=== PATIENT | male | born 1945 | race Caucasian/White ===

== ENCOUNTER 2023-03-23 16:36 | Emergency (ER) | payer MEDICARE, BC, SELFPAY ==
--- NOTE | ~2023-03-23 | XR_ITS ---
EXAMINATION: XR finger 2nd LT min 2V DATE: 03/23/2023 17:06 INDICATION: Chain saw injury to the left second digit TECHNIQUE: Dorsal palmar, lateral and 2 oblique views of the left second digit were obtained COMPARISON: None FINDINGS: Soft tissue swelling and bandaging material about the left second digit. Alignment is normal. There i s a tiny calcific density immediately adjacent to a shallow defect along the surface of the cortex at the dorsal neck of the second proximal phalanx consistent with a likely chain saw injury to the bone . No evident completed fracture extending through the full-thickness of the cortex. No other radiopaq ue foreign bodies. 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 IMPRESSION: 1. Focal small chainsaw injury (open/compound fracture) to the bone at the dorsal neck of the second proximal phalanx with and tiny minimally displaced bone fragment adjacent to the shallow defect along the cortical surface. No radiopaque foreign bodies. Reviewed, dictated and finalized at location A. IMPRESSION: 1. Focal small chainsaw injury (open/compound fracture) to the bone at the dors al neck of the second proximal phalanx with and tiny minimally displaced bone f ragment adjacent to the shallow defect along the cortical surface. No radiopaqu e foreign bodies.
[2023-03-23 16:43] VITALS: BP 141/57; PULSE 85; RESP 18; TEMP 36.6; O2SAT 98
[2023-03-23] MEDS: TETANUS,DIPHTHERIA,AC PERTUSSIS ADULT (0.5 ML) BOOSTRIX IM (16:54)
--- NOTE | 2023-03-23 17:24 | ED.WOUNDLAC ---
HPI - Wound/Laceration General Chief Complaint: Wound/Laceration Stated Complaint: hand vs chainsaw Time Seen by Provider: 03/23/23 16:53 History of Present Illness HPI narrative: Patient is a 77-year-old male presenting with a laceration. Patient was using a chainsaw when he accidentally hit his left second finger sustaining a laceration. He denies further injuries. He states it feels a little bit sore. He has not updated on tetanus. Denies further complaints. Related Data Allergies Allergy/AdvReac Type Severity Reaction Status Date / Time No Known Allergies Allergy Verified 03/23/23 16:50 Review of Systems Review of Systems: All systems reviewed & are unremarkable except as noted in HPI and below PMFSH Past Medical History Medical History History of melanoma 2012 Surgical History Surgical History History of right inguinal hernia repair 2002 laparoscopic Family History Family History Grandparent Breast cancer Social History Social History Smoking status: Never smoker Second hand tobacco smoke exposure: No Drinks per week: 3 Substance use: never Substance use type: does not use Living arrangements: with family Occupation/Education: retired Gender identity (if verbalized by the patient): Male Sexual Orientation (if Verbalized by the Patient): Straight or Heterosexual Spiritual care concerns: No Agree to blood products: Yes Exam Narrative: GENERAL: Well-appearing, well-nourished, and in no acute distress. Pleasant and cooperative HEAD: Normocephalic, atraumatic. EYES: PERRLA and EOMI. ENT: Nares clear, no rhinorrhea or epistaxis. Mucous membranes moist. NECK: Supple. CHEST: No respiratory distress. HEART: Regular rate and rhythm. Normal peripheral pulses. ABDOMEN: nondistended EXTREMITIES: Normal range of motion. No edema. SKIN: 2.5cm laceration to dorsal left second finger near the base; some surrounding tissue is macerated, bleeding is controlled; neurovascularly intact NEURO: No focal deficits. Alert and oriented x3. PSYCH: Normal mood and affect. Course Vital Signs Vital signs: Vital Signs Temperature 98 F 03/23/23 16:43 Pulse Rate 85 03/23/23 16:43 Respiratory Rate 18 03/23/23 16:43 Blood Pressure 141/57 H 03/23/23 16:43 Pulse Oximetry 98 03/23/23 16:43 Temperature 98 F 03/23/23 16:43 Pulse Rate 85 03/23/23 16:43 Respiratory Rate 18 03/23/23 16:43 Blood Pressure 141/57 H 03/23/23 16:43 Pulse Oximetry 98 03/23/23 16:43 Procedures Laceration Laceration 1: Date: 03/23/23 Time: 21:26 Site: hand Side (If applicable): left Size (cm): 2 Description: flap and irregular Depth: simple, single layer Local Anesthetic: lidocaine 1% Pre-repair: irrigated extensively ====== Skin Level ====== Size (cm): 4-0 Number of sutures: 5 Technique: simple, interrupted ====== Subcutaneous Layer ====== ====== Muscle Layer ====== ====== Tendon Layer ====== MDM - Wound/Laceration MDM Narrative Medical decision making narrative: Patient is a 77-year-old male presenting with a laceration to his left second finger. Vitals are stable. Exam remarkable for the above. X-ray with open comminuted fracture. Spoke with orthopedics who advises consulting hand surgery. Call out to [facility]. Spoke with Dr. Casillas at [facility] with hand surgery. He reviewed the images and advises thorough irrigation and loose closure at this time. States he can be placed in a finger splint and follow-up with hand surgery. Patient has already been given Ancef and tetanus. Laceration was repaired loosely at bedside without complication. Provided t
[2023-03-23] MEDS: WATER, STERILE FOR INJECTION 10 ML VIAL XX (18:41)
[2023-03-23] MEDS: ceFAZolin SODIUM 1 GM VIAL IM (18:41)
== END 2023-03-23 21:49 | disposition home or self-care (01) ==
PROVIDERS: Emergency Provider Emergency Medicine; PCP Family Medicine Adolescent Medicine
DX: S62.621B Displaced fracture of middle phalanx of left index finger, initial encounter for open fracture (principal); W29.3XXA Contact with powered garden and outdoor hand tools and machinery, initial encounter; Z23 Encounter for immunization
CPT/HCPCS: 12001; 29130; 73140; 90471; 90715; 99284; J0690; J7030

== ENCOUNTER 2023-08-16 10:31 | Emergency (ER) | payer MEDICARE, SELFPAY ==
--- NOTE | ~2023-08-16 | XR_ITS ---
EXAMINATION: XR finger 1st LT min 2V INDICATION: Left first finger pain TECHNIQUE: Three views of the left first finger are obtained. COMPARISON: 03/23/2023 FINDINGS: Bone alignment is normal. There is no fracture. There is soft tissue swelling of the first finger. IMPRESSION: 1. No acute osseous abnormality. Reviewed, dictated and finalized at location A. [employer]
--- NOTE | 2023-08-16 12:49 | ED.GENADULT ---
[facility] - General Adult General Chief complaint: Extremity Injury, Upper Stated complaint: left thumb injury Time Seen by Provider: 08/16/23 12:54 Source: patient Mode of arrival: ambulatory Limitations: no limitations History of Present Illness HPI narrative: This is a 78 yo M who presents to the ED with chief complaint of L thumb injury. Reports he shut it in car door on accident yesterday and the pain increased today. Reports increased bruising and wants to make sure it isn't broken. Denies numbness, weakness or any further site of pain or injury. Related Data Allergies Allergy/AdvReac Type Severity Reaction Status Date / Time No Known Allergies Allergy Verified 03/27/23 15:13 Review of Systems Review of Systems: All systems as dictated in [facility] Past Medical History Medical History History of melanoma 2012 Surgical History Surgical History History of right inguinal hernia repair 2002 laparoscopic Family History Family History Grandparent Breast cancer Social History Social History Smoking status: Never smoker Second hand tobacco smoke exposure: No Drinks per week: 3 Substance use: never Substance use type: does not use Lack of Transportation: No Lack of Food: Never True Current Housing: I Have Housing Concerned About Future Housing: No Difficulty Paying Gas/Electric Bills: No Difficulty Paying for Meds: No Currently Unemployed: No Education: Bachelor's Degree Difficulty w/ Childcare or Family Care: No Living arrangements: with family Occupation/Education: retired Gender identity (if verbalized by the patient): Male Sexual Orientation (if Verbalized by the Patient): Straight or Heterosexual Spiritual care concerns: No Agree to blood products: Yes Exam Narrative: GENERAL: Well-appearing, well-nourished, and in no acute distress. HEAD: Normocephalic, atraumatic. EYES: PERRLA and EOMI. ENT: Nares clear, no rhinorrhea or epistaxis. Mucous membranes moist. Oropharynx without tonsillar hypertrophy exudate or other lesions. NECK: Supple. No adenopathy or masses. CHEST: No respiratory distress. Clear to auscultation. No wheezes rales or rhonchi HEART: Regular rate and rhythm. No murmur heard. Normal peripheral pulses. ABDOMEN: Soft, nontender, nondistended, normal active bowel sounds. MSK: Mild bruising to the left thumb distally. There is a little bit of ecchymosis to the proximal most aspect of the thumb. No evidence of large subungual hematoma. Mild tenderness in the area. Neurovascularly intact distally. SKIN: Warm, dry, no rash. NEURO: Alert and oriented x3. No focal deficits. PSYCH: Normal mood and affect. Medical Decision Making MDM Narrative Medical decision making narrative: This is a 78-year-old male who presents to the ED with chief complaint left thumb injury in a car door that occurred very a couple of days ago. Pain increasing. Vitals are normal. Exam shows bruised thumb with slight ecchymosis to the proximal nail bed. No large subungual hematoma is appreciated. Feel that this should resolve on its own. Return precautions given for spreading bruising in the nail or uncontrolled pain at home. He feels comfortable going home trialing [id number] pain medications in the meantime. Pt will be discharged in stable condition. Return precautions given and supportive measures discussed. Pt is understanding and agreeable with plan for discharge and follow-up with PCP. Discharge Plan Discharge Clinical Impression: Injury of left thumb Patient Disposition: Home, Self-Care Condition: Stable Instructions: Antibiotic Form Additional Instructions: Your exam and imaging are reassuring. No fracture.
== END 2023-08-16 13:13 | disposition home or self-care (01) ==
LOC: ANHED 13:05
PROVIDERS: Emergency Provider Physician Assistant; PCP Family Medicine Adolescent Medicine
DX: S69.92XA Unspecified injury of left wrist, hand and finger(s), initial encounter (principal); Z85.820 Personal history of malignant melanoma of skin; W23.0XXA Caught, crushed, jammed, or pinched between moving objects, initial encounter
CPT/HCPCS: 73140; 99283